=== PATIENT | male | born 1975 | race Caucasian/White ===

== ENCOUNTER 2022-08-20 09:48 | Emergency (ER) | payer OTHER ==
[~2022-08-20] VITALS: Ht 190.5 cm; Wt 108.9 kg
[2022-08-20 09:55] VITALS: BP 165/89
--- NOTE | 2022-08-20 10:22 | ER.PDOC ---
General Chief Complaint: Extremities Stated Complaint: LEFT ANKLE INJURY Time seen by MD: 10:21 Source: patient Exam Limitations: no limitations History of Present Illness Initial Comments Left ankle pain since yesterday. Patient twisted his left ankle. Onset: yesterday Where: home Severity: moderate Context: twist Modifying Factors: pain on movement Allergies: Coded Allergies: No Known Drug Allergies (Verified Allergy, Unknown, 08/20/22) Past Medical History Medical History: other Surgical History: shoulder Family History Significant Family History: no pertinent family hx Social History Smoking: non-smoker Alcohol Use: heavy Drug Use: none Review of Systems Constitutional: no symptoms reported EENTM: no symptoms reported Respiratory: no symptoms reported Cardiovascular: no symptoms reported Musculoskeletal: see HPI All Other Systems: Reviewed and Negative Physical Exam General Appearance: Alert, No Apparent Distress Foot: nml inspection, non-tender Ankle: tenderness (Left ankle), swelling (Lateral aspect of the left ankle), ecchymosis (Lateral aspect of left ankle), limited ROM by pain Gait: limited by pain Neuro: sensation nml, motor nml Vascular: no vascular compromise Tendons: tendon function nml Leg/Knee/Thigh: uninjured above ankle Skin: warm/dry Head/ENT: nml inspection, pharynx nml Neck/Back: nml inspection, non-tender Resp/CVS: no resp distress Abdomen: non-tender, no organomegaly Results/Orders Results/Orders Orders - MITCHELL MAE MD Xr Ankle 3v Lt (08/20/22 10:00) Vital Signs Date Time Temp Pulse Resp B/P (MAP) Pulse Ox O2 Delivery O2 Flow Rate FiO2 08/20/22 09:55 98.0 64 18 98 08/20/22 09:55 98.0 64 18 08/20/22 09:55 98.0 64 18 165/89 (114) 98 Room Air* 0 21 Progress Progress X-rays: Tiny avulsion fracture left lateral malleolus Patient received a walking boot. He refused crutches. He is visiting. I told him to follow-up with his orthopedic surgeon next week when he returns to his hometown. ER DEPART Departure Time of Disposition: 10:24 Disposition: 01 HOME / SELF CARE / HOMELESS Impression: Primary Impression: Fracture of malar, left, closed Additional Impression: Left ankle injury Condition: Improved Referrals: PCP,UNKNOWN (PCP) PRIMARY CARE PROVIDER Additional Instructions: Ice Ibuprofen Follow-up with your orthopedic surgeon next week upon return home Return if worsening or concerns Duration or Time Spent with Pa: 10 min Problem Qualifiers Primary Impression: Fracture of malar, left, closed Encounter type: initial encounter Qualified Codes: S02.40BA - Malar fracture, left side, initial encounter for closed fracture Additional Impression: Left ankle injury Encounter type: initial encounter Qualified Codes: S99.912A - Unspecified injury of left ankle, initial encounter MITCHELL MAE MD Aug 20, 2022 10:22
--- NOTE | 2022-08-20 10:34 | DIREP ---
PROCEDURE:XRAY ANKLE MIN 3VWS-LT COMPARISON:None. INDICATIONS:injury FINDINGS: BONES:There is an acute avulsion fracture of the tip of the lateral malleolus. JOINTS:The joint spaces are intact. SOFT TISSUES:Moderate soft tissue edema of the lateral ankle. OTHER:No additional findings. CONCLUSION:Acute avulsion fracture of the tip of the lateral malleolus with associated moderate soft tissue edema. Dictated by: Sp Anguiano M.D. on 08/20/2022 at 10:32 AM
== END 2022-08-20 10:30 | disposition home or self-care (01) ==
LOC: ER 09:48
DX: S02.40DA Maxillary fracture, left side, initial encounter for closed fracture (principal); S99.912A Unspecified injury of left ankle, initial encounter; X58.XXXA Exposure to other specified factors, initial encounter; Y93.89 Activity, other specified; Y92.89 Other specified places as the place of occurrence of the external cause; Y99.8 Other external cause status
CPT/HCPCS: 99283; 73610-LT